=== PATIENT | female | born 1960 ===

== ENCOUNTER 2024-11-20 07:00 | Day surgery (SDC) | payer OTHER ==
[2024-11-14 10:07] VITALS: BP 121/74
[~2024-11-20] VITALS: Ht 152.4 cm; Wt 52.2 kg
[~2024-11-20 07:00] MED LIST: ATORVASTATIN CA10 MG PO
[2024-11-20] MEDS ORDERED: POVIDONE-IODINE 118 ML BOTT TOP ONE (08:30)
[2024-11-20] MEDS ORDERED: SUGAMMADEX SODIUM 200 MG/2 ML VIAL IV ONE (09:30)
[2024-11-20] MEDS ORDERED: CIPRO500 MG PO (09:53)
[2024-11-20] MEDS ORDERED: IBU800 MG PO (09:53)
[2024-11-20] MEDS ORDERED: NEURONTIN300 MG PO (09:54)
[2024-11-20] MEDS ORDERED: MORPHINE SULFATE 4 MG/ML VIAL IV ONE (10:40)
== END 2024-11-20 12:05 | disposition home or self-care (01) ==
LOC: CIR.AMB 07:00 → SURH 08:30 → EDSTATUS 08:30 → CIR.AMB 08:30
PROVIDERS: ATTEND Obstetrics & Gynecology Gynecology
DX: D39.11 Neoplasm of uncertain behavior of right ovary (principal); D39.8 Neoplasm of uncertain behavior of other specified female genital organs; D28.2 Benign neoplasm of uterine tubes and ligaments